=== PATIENT | male | born 1975 | race Caucasian/White ===

== ENCOUNTER 2020-06-05 00:21 | Emergency (ER) | payer BC, OTHER ==
[~2020-06-05] VITALS: Ht 195.6 cm; Wt 136.4 kg
[~2020-06-05 00:21] MED LIST: CYCL-1 PO
[2020-06-05 00:55] LABS: TOTAL CARBON DIOXIDE 20.5 MMOL/L (24-32)
[2020-06-05 01:06] LABS: HEMATOCRIT 43.2 % (42.0-52.0)
[2020-06-05 01:12] LABS: ALANINE AMINOTRANSFERASE 33 U/L (12-78); ALBUMIN 4.7 G/DL (3.4-5.0); ALBUMIN/GLOBULIN RATIO 1.4 (1.1-1.5); ALKALINE PHOSPHATASE 95 IU/L (46-116); ANION GAP 17 (8-16); ASPARTATE AMINO TRANSFERASE 24 U/L (10-37); BILIRUBIN,TOTAL 0.3 MG/DL (0.1-1.0); BLOOD UREA NITROGEN 15 MG/DL (7-18); BUN/CREATININE RATIO 12.1 (5.4-32.0); CALCIUM 9.2 MG/DL (8.5-10.1); CHLORIDE 105 MMOL/L (99-107); CREATININE 1.24 MG/DL (0.60-1.10); GLUCOSE 115 MG/DL (70-104); POTASSIUM 3.8 MMOL/L (3.5-5.1); SODIUM 142 MMOL/L (135-145); eGFR 64 ML/MIN
[2020-06-05 01:15] LABS: BASOPHILS % (AUTO) 0.5 % (0-1); EOSINOPHILS # (AUTO) 0.3 X10'3 (0-0.9); EOSINOPHILS % (AUTO) 4.3 % (0-6); HEMOGLOBIN 15.3 g/dl (14.0-17.9); LYMPHOCYTES # (AUTO) 2.1 X10'3 (1.1-4.8); LYMPHOCYTES % (AUTO) 29.7 % (21-51); MEAN CORPUSCULAR HEMOGLOBIN 30.5 PG (27.0-31.0); MEAN CORPUSCULAR HGB CONC 35.5 g/dL (33.0-36.5); MEAN CORPUSCULAR VOLUME 86.1 FL (78-98); MEAN PLATELET VOLUME 10.4 FL (7.4-10.4); MONOCYTES # (AUTO) 0.7 X10'3 (0-0.9); MONOCYTES % (AUTO) 10.1 % (2-12); NEUTROPHILS % (AUTO) 55.4 % (42-75); RED BLOOD COUNT 5.02 X10'6 (4.70-6.10); RED CELL DISTRIBUTION WIDTH 12.7 % (11.5-14.5); WHITE BLOOD COUNT 7.2 X10'3 (4.5-11.0)
[2020-06-05 01:17] LABS: PLATELET COUNT 214 X10'3 (140-440)
[2020-06-05] MEDS ORDERED: aspirin 81mg tab.chew PO ONE (01:30)
[2020-06-05 04:10] VITALS: BP 109/61
== END 2020-06-05 04:18 | disposition home or self-care (01) ==
LOC: ER 00:21
DX: R07.89 Other chest pain (principal); R11.2 Nausea with vomiting, unspecified; Z79.899 Other long term (current) drug therapy
CPT/HCPCS: 36415; 71045; 80053; 83880; 84484; 85025; 93005; 99285

== ENCOUNTER 2021-07-28 20:37 | Emergency (ER) | payer BC ==
[~2021-07-28] VITALS: Ht 195.6 cm; Wt 136.4 kg
[2021-07-28] MEDS ORDERED: acetaminophen 325mg tablet PO ONE (21:30)
[2021-07-28 22:31] VITALS: BP 144/98
== END 2021-07-28 22:33 | disposition home or self-care (01) ==
LOC: ER 20:38
DX: U07.1 COVID-19 (principal); I10 Essential (primary) hypertension; R07.89 Other chest pain; R42 Dizziness and giddiness; R11.10 Vomiting, unspecified
CPT/HCPCS: 87635; 99283; C9803